=== PATIENT | female | born 1970 | race Caucasian/White ===

== ENCOUNTER 2018-12-03 20:16 | Observation (INO) | payer OTHER ==
[~2018-12-03] VITALS: Ht 160 cm; Wt 57.2 kg
--- OUTSIDE RECORDS SUMMARY | 2018-12-03 20:19 | XMS REPORT | Clinical Summary ---
Author Author [facility] Organization [facility] Address Unknown Phone Unavailable Care Team Providers Care Lab Systems Analyst Name Role Phone PCP Unavailable Allergies Not on File Medications Not on file Active Problems Not on file Social History Date Tobacco Use Types Packs/Day Years Used Never Assessed Sex Assigned at Date Recorded Not on file Industry Job Start Date Occupation Not on file Not on file Not on file Travel End Travel History Travel Start No recent travel history available. Last Filed Vital Signs Not on file Plan of Treatment Not on file Results Not on fileafter 12/02/2017
[2018-12-03 20:46] LABS: BASOPHILS # (AUTO) 0.1 (0.0-0.1); BASOPHILS % 0.6 % (0.0-1.0); EOSINOPHILS # (AUTO) 0.3 (0.0-0.4); EOSINOPHILS % 3.6 % (0.0-6.0); HEMATOCRIT 42.6 % (34.2-44.1); LYMPHOCYTES # (AUTO) 3.3 (1.0-3.2); MEAN CORPUSCULAR HEMOGLOBIN 31.6 pg (28-32); MEAN CORPUSCULAR HGB CONC 35.2 g/dL (31-35); MEAN CORPUSCULAR VOLUME 89.7 fL (81-99); MONOCYTES # (AUTO) 0.6 (0.2-0.8); MONOCYTES % 7.1 % (4.4-11.3); NEUTROPHILS # (AUTO) 4.6 (2.1-6.9); NEUTROPHILS % 51.5 % (38.7-80.0); PLATELET COUNT 313 x10e3/uL (140-360); RED BLOOD COUNT 4.75 x10e6/uL (3.6-5.1); RED CELL DISTRIBUTION WIDTH 11.9 % (11.7-14.4)
[2018-12-03 20:51] LABS: INR 0.82; PROTHROMBIN TIME 11.8 seconds (11.9-14.5)
[2018-12-03 20:52] LABS: PARTIAL THROMBOPLASTIN TIME 26.1 seconds (23.8-35.5)
[2018-12-03 21:02] LABS: ALANINE AMINOTRANSFERASE 8 IU/L (0-55); ALBUMIN 4.1 g/dL (3.5-5.0); ALBUMIN/GLOBULIN RATIO 1.4 (0.8-2.0); ALKALINE PHOSPHATASE 77 IU/L (40-150); ANION GAP 15.1 mmol/L (8-16); BLOOD UREA NITROGEN 12 mg/dL (7-26); BUN/CREATININE RATIO 14 (6-25); CALCIUM 9.7 mg/dL (8.4-10.2); CARBON DIOXIDE 26 mmol/L (22-29); CHLORIDE 100 mmol/L (98-107); CREATINE KINASE 61 IU/L (29-168); CREATININE, SERUM 0.83 mg/dL (0.57-1.11); EST GLOMERULAR FILTRATION RATE > 60 ML/MIN (60-); GLUCOSE 94 mg/dL (74-118); POTASSIUM 4.1 mmol/L (3.5-5.1); SODIUM 137 mmol/L (136-145)
--- NOTE | 2018-12-03 21:16 | Diagnostic Imaging Report ---
EXAMINATION: CHEST SINGLE (PORTABLE) COMPARISON: None INDICATION: Chest tightness, trouble breathing, left shoulder pain ^ERMD ORDER ^[id number] ^2051 ^Y DISCUSSION: Frontal view of the chest obtained at 2058 hours. HEART AND MEDIASTINUM: The cardiomediastinal silhouette is unremarkable. LINES: None. LUNGS: The lungs are well inflated and clear. No pneumonia or pulmonary edema. PLEURA: No pleural effusion or pneumothorax. BONES AND SOFT TISSUES: No focal osseous lesion. The soft tissues are normal. IMPRESSION: No acute cardiopulmonary disease. Signed by: Dr. Ric Martin MD on 12/03/2018 9:13 PM
--- NOTE | 2018-12-03 22:40 | NUR ---
PT STATES TO CONTINUE TO HAVE PAIN AT THIS TIME, BUT STATES "I DON'T WANT TO TAKE PAIN MEDICATION, I DO NOT LIKE TO TAKE PAIN MEDS"; PT UPDATED ON PLAN OF CARE AND INTENT OF ADMISSION, VERBALIZED UNDERSTANDING.
[2018-12-03 22:50] LABS: BILIRUBIN,URINE NEGATIVE (NEGATIVE); CLARITY,URINE CLEAR (CLEAR); COLOR,URINE YELLOW (YELLOW); KETONES,URINE NEGATIVE (NEGATIVE); LEUKOCYTE ESTERASE ,URINE NEGATIVE (NEGATIVE); NITRITE,URINE NEGATIVE (NEGATIVE); PROTEIN,URINE DIPSTICK NEGATIVE (NEGATIVE); URINE UROBILINOGEN 0.2 mg/dL (0.2 - 1)
--- NOTE | 2018-12-03 23:00 | NUR ---
REPORT GIVENT TO GLENNY BREWSTER
[2018-12-03 23:12] LABS: BACTERIA,URINE RARE /HPF; EPITHELIAL CELLS,URINE RARE /LPF; RBC,URINE 0-5 /HPF (0-5); WBC,URINE (MAN) 0-5 /HPF (0-5)
[2018-12-03] MEDS ORDERED: ONDANSETRON HCL INJ 2MG/ML 2ML 2 MG/ML VIAL IV PRN (23:15)
--- OUTSIDE RECORDS SUMMARY | 2018-12-03 23:20 | XMS REPORT | Clinical Summary ---
Author Author [facility] Organization [facility] Address Unknown Phone Unavailable Care Team Providers Care Printed Circuit Boards Laminator Name Role Phone PCP Unavailable Allergies Not [...]
--- OUTSIDE RECORDS SUMMARY | 2018-12-03 23:20 | XMS REPORT ---
Author Author [facility] Address Unknown Phone Unavailable Care Team Providers Care Construction Analyst Name Role Phone Randee NELSON Unavailable Unavailable Problems This patient has no known problems. Allergies, Adverse Reactions, Alerts This patient has no known allergies or adverse reactions. Medications This patient has no known medications. Results Test Description Test Time Test Comments Text Results Atomic Results Result Comments CHEST SINGLE (PORTABLE) 2018-12-03 21:12:00 [place] [id number] Patient Name: NATASHA GARDNER MR #: [id number] : 1970 Age/Sex: 47/F Req #: [id number] Adm Physician: Ordered by: GEORGETTE GANT NP Report #: [id number] Location: ER Room/Bed: Procedure: [id number] DX/CHEST SINGLE (PORTABLE) Exam Date: 12/03/18 Exam Time: 2051 REPORT STATUS: Signed EXAMINATION: CHEST SINGLE (PORTABLE) COMPAR FLAKO: None INDICATION: Chest tightness, trouble breathing, left shoulder pain ERMD ORDER [id number] DISCUSSION: Frontal view of the chest obtained at 2058 hours. HEART AND MEDIASTINUM: The cardiomediastinal silhouette is unremarkable. LINES: None. LUNGS: The lungs are well inflated and clear. No pneumonia or pulmonary edema. PLEURA: No pleural effusion or pneumothorax. BONES AND SOFT TISSUES: No focal osseous lesion. The soft tissues are normal. IMPRESSION: No acute cardiopulmonary disease. Signed by: Dr. Tierney Martin MD on 12/03/2018 9:13 PM Dictated By: TIERNEY MARTIN MD 12 Transcribed By: MITCH on 12/03/182112 COPY TO: GEORGETTE GANT NP
[2018-12-04] MEDS: FAMOTIDINE 20 MG TAB PO SCH ×2 (02:33→10:18)
--- NOTE | 2018-12-04 03:45 | NUR ---
RECEIVED PATIENT VIA STRETCHER. ALERT AND ORIENTED. ASSISTED TO BED. PATIENT PLACED ON A TELE ORDERED. VITAL SIGNS WITHIN NORMAL. NO COMPLAINT OF CHEST PAIN AT THIS TIME. PATIENT REFUSED HOSPITAL GOWN. ASSESSMENT DONE. PATIENT CLAIMED SHE FALL SEVERAL TIMES AT HOME. BED ALARM ON. CALL LIGHT WITHIN REACHED.
[2018-12-04 04:08] VITALS: BP 131/61
[2018-12-04 04:30] VITALS: BP 131/61
[2018-12-04 07:00] LABS: CHOL/HDL RATIO 2.7 (3.0-3.6)
[2018-12-04 07:08] LABS: CREATINE KINASE MB 0.8 ng/mL (0-5.0)
[2018-12-04 07:41] VITALS: BP 113/77
[2018-12-04 09:00] VITALS: BP 113/77
[2018-12-04] MEDS ORDERED: ASPIRIN 81 MG ENTERIC COATED PO SCH (09:00)
[2018-12-04] MEDS ORDERED: FAMOTIDINE20 MG PO (09:09)
[2018-12-04] MEDS ORDERED: ASPIRIN EC81 MG PO (09:09)
[2018-12-04 12:02] VITALS: BP 119/61
--- NOTE | 2018-12-04 12:51 | NUR ---
patient discharged home verbalized understanding of d/c instructions.
--- NOTE | 2018-12-05 21:27 | Discharge Summary ---
ADMISSION DIAGNOSES: Chest pain, tobacco use. DISCHARGE DIAGNOSES: Chest pain, tobacco use, rule out myocardial infarction. HISTORY: The patient has a history of left arm tumor and asthma. SURGICAL HISTORY: Jaw surgery, bilateral eye surgery, hysterectomy, bilateral oophorectomy, right ankle surgery, left arm surgery. FAMILY HISTORY: The patient's mother had diabetes and cancer. SOCIAL HISTORY: The patient admits to smoking 1 pack of cigarettes a day. HOSPITAL COURSE: A 47-year-old female complains of chest pressure that made her short of breath on the day of admission while sitting on her couch. It lasted several hours. She also had pain that radiated down her left arm, but she attributed that to her chronic left arm pain related to the tumor. She denies nausea, vomiting, diarrhea, and fever. Nothing improved or worsened the symptoms. On admission, troponins were negative x3. EKG showed normal sinus rhythm. Echo showed an EF of 45% to 50%. The patient was sent home with new prescriptions for aspirin and Pepcid. The patient understands discharge instructions and agrees to plan. She will follow up with primary care in 1 to 2 weeks. Dictated by Ivon Harris NP MD MEREDITH Brar/CRISELDA /[id number]
== END 2018-12-04 12:50 | disposition home or self-care (01) ==
LOC: ER 20:16 → ERHOLD 23:17 → IMCU 12-04 03:22
PROVIDERS: ADMIT Internal Medicine; ATTEND Internal Medicine
DX: R07.9 Chest pain, unspecified (principal); M25.511 Pain in right shoulder; Z88.2 Allergy status to sulfonamides; Z82.49 Family history of ischemic heart disease and other diseases of the circulatory system; Z72.0 Tobacco use; Z86.711 Personal history of pulmonary embolism; J45.909 Unspecified asthma, uncomplicated
CPT/HCPCS: 36415; 71045; 80053; 80061; 81001; 82550; 82553; 84484; 85025; 85379; 85610; 85730; 93005; 93306; 99284; G0378

== ENCOUNTER 2020-02-15 02:34 | Emergency (ER) | payer OTHER ==
[~2020-02-15] VITALS: Ht 160 cm; Wt 57.2 kg
[~2020-02-15 02:34] MED LIST: ASPIRIN EC81 MG PO; FAMOTIDINE20 MG PO
--- NOTE | 2020-02-15 03:04 | Emergency Department Note ---
History of Present Illnes History of Present Illness Chief Complaint: Extremity Trauma/Pain History of Present Illness This is a 49 year old female arrived to the ED right hand pain after a crush injury in December. Patient denies any numbness or weakness but states pain is unrelenting. . Historian: Patient Arrival Mode: Car Onset (how long ago): week(s) Severity: mild Duration (how long): month(s) Timing of current episode: intermittent Progression: unchanged Past Medical/Family History Physician Review I have reviewed the patient's past medical and family history. Any updates have been documented here. Past Medical History Recent Fever: No Clinical Suspicion of Infectio: No New/Unexplained Change in Ment: No Past Medical History: DVT/PE Past Surgical History: Hysterectomy, Tubal Ligation Other Surgery: eye surgery right ankle plate removed right ankle plate ovarian cyst removal jaw sx varicose vein cyst removal from rt knee nerve relocated to lt elbow Other Last Tetanus: UTD Review of Systems Review of Systems Constitutional: Reports no symptoms EENTM: Reports no symptoms Cardiovascular: Reports no symptoms Respiratory: Reports no symptoms Gastrointestinal: Reports no symptoms Genitourinary: Reports no symptoms Musculoskeletal: Reports as per HPI Integumentary: Reports no symptoms Neurological: Reports no symptoms Psychological: Reports no symptoms Endocrine: Reports no symptoms Hematological/Lymphatic: Reports no symptoms Physical Exam Related Data Allergies: Uncoded Allergies: SULFA (Allergy, Unknown, 12/03/18) Triage Vital Signs Vital Signs Date Time Temp Pulse Resp B/P (MAP) Pulse Ox O2 Delivery O2 Flow Rate FiO2 02/15/20 02:49 98.7 106 20 136/83 100 Room Air Vital signs reviewed: Yes Physical Exam CONSTITUTIONAL Constitutional: Present well-developed, Present well-nourished HENT HENT: Present normocephalic, Present atraumatic, Present oropharynx clear/moist, Present nose normal HENT L/R: Present left ext ear normal, Present right ext ear normal EYES Eyes: Reports PERRL, Reports conjunctivae normal NECK Neck: Present ROM normal PULMONARY Pulmonary: Present effort normal, Present breath sounds normal CARDIOVASCULAR Cardiovascular: Present regular rhythm, Present heart sounds normal, Present capillary refill normal, Present normal rate GASTROINTESTINAL Abdominal: Present soft, Present nontender, Present bowel sounds normal GENITOURINARY Genitourinary: Present exam deferred SKIN Skin: Present warm, Present dry MUSCULOSKELETAL Musculoskeletal: Present deformity, Present tenderness, Present swelling NEUROLOGICAL Neurological: Present alert, Present oriented x 3, Present no gross motor or sensory deficits PSYCHOLOGICAL Psychological: Present mood/affect normal, Present judgement normal Results Imaging Imaging results reviewed: Yes Assessment & Plan Medical Decision Making MDM 41-year-old female swelling. Follow-up with hand surgeon possible MRI neurovascularly intact. Patient placed in a Velcro splint and was neurovascular intact prior to and post splint placement. Assessment & Plan Final Impression: (1) Wrist sprain Depart Disposition: HOME, SELF-CARE Last Vital Signs Date Time Temp Pulse Resp B/P (MAP) Pulse Ox O2 Delivery O2 Flow Rate FiO2 02/15/20 02:49 98.7 106 20 136/83 100 Room Air Home Meds Active Scripts Famotidine (FAMOTIDINE) 20 Mg Tab, 20 MG PO DAILY, #30 TAB Prov:REYNA LUNA NP 12/04/18 Aspirin (ASPIRIN EC) 81 Mg Tablet.dr 81 MG PO QAM for 30 Days Prov:REYNA LUNA NP 12/04/18 JACKIE ACEVEDO DO Feb 15, 2020 03:04
--- OUTSIDE RECORDS SUMMARY | 2020-02-15 03:14 | XMS REPORT | Continuity of Care Document ---
Author Author [facility] Organization [facility] Address [address] [place] [address] Phone Unavailable Care Team Providers Care Psychology Intern Name Role Phone NONSTAFF PCP Unavailable Randee NELSON Attphyclarissa Unavailable Payers Payer Name Policy Type Policy Number Effective Date Expiration Date Clarissa Booth [facility] [id number] 2014 00:00:00 [facility] Problems Condition Name Condition Details Condition Category Status Onset Date Resolution Date Last Treatment Date Treating Clinician Comments Source Chest pain Chest pain Problem Active [facility] Dyspnea Dyspnea Problem Active [facility] Allergies, Adverse Reactions, Alerts Allergy Name Allergy Type Status Severity Reaction(s) Onset Date Inacti ve Date Treating Clinician Comments Source SULFA Allergy to Substance Active 2018-12-03 00:00:00 [facility] Social History Social Habit Start Date Stop Date Quantity Comments Source Sex Assigned At Priyank Hoang Medications Ordered Medication Name Filled Medication Name Start Date Stop Da te Current Medication? Ordering Clinician Indication Dosage Frequency Signature (SIG) Comments Components Source Aspirin (Aspirin Ec) 81 Mg Tablet. Aspirin (Aspirin Ec) 81 Mg Tablet. 2018-12-04 00:00:00 Yes Ivon Harris [employer] Operator Chief 81 Every M orning [facility] Famotidine 20 Mg Tab Famotidine 20 Mg Tab 2018-12-04 00:00:00 Yes Ivon Harris Np 20 Daily [facility] Procedures This patient has no known procedures. Encounters Start Date/Time End Date/Time Encounter Type Admission Type [facility] Care Department Encounter ID Source 2018-12-03 23:17:00 2018-12-04 12:50:00 Discharged Inpatient (obs) 1 CYNDIE NELSON [facility] [id number] [facility] Results Test Description Test Time Test Comments Results Result Comments Source Creatine Kinase MB 2018-12-04 07:21:00 Test Item Creatine Kinase MB (test code = 01414-4) 0.80 0-5.0 [facility]onin [id number] 07:21:00* Test Item Value Reference Range Interpretation Comments Troponin I (test code = GQM6431) 0.005 0-0.300 [facility]AllenTriglycerides Nmsjq7007-38-62 07:02:00* Test Item Value Reference Range Interpretation Comments Triglycerides Level (test code = 2571-8) 48 0-149 [facility]Cholesterol Dgqyc4822-61-23 07:02:00* Test Item Value Reference Range Interpretation Comments Cholesterol Level (test code = 2093-3) 163 0-199 Less than 200 mg/dL Low Tgnn533 - 239 mg/dL Borderline Qnpy025 m g/dl and greater High Risk [facility]AllenLDL Fxfyyylvmei4335-22-81 07:02:00* Test Item Value Reference Range Interpretation Comments LDL Cholesterol (test code = 2089-1) 93 60-130 [facility]HDL Uxhcniqxruo3941-83-91 07:02:00* Test Item Value Reference Range Interpretation Comments HDL Cholesterol (test code = 2085-9) 60 40-60 [facility]olesterol/HDL Tsqpg5813-74-78 07:02:00 * Test Item Value Reference Range Interpretation Comments Cholesterol/HDL Ratio (test code = 9830-1) 2.7 3.0-3.6 L [facility]AllenCreatine Pokdaf8030-40-76 07:02:00* Test Item Value Reference Range Interpretation Comments Creatine Kinase (test code = 2157-6) 40 29-168 [facility]AllenUrine [id number] 23:12:00* Test Item Value Reference Range Interpretation Comments Urine WBC (test code = 5821-4) 0-5 0-5 [facility]Allen[facility] [id number] 23:12:00* Test Item Value Reference Range Interpretation Comments Urine RBC (test code = 25310-1) 0-5 0-5 [facility]AllenU[facility] Puutoumc5601-51-18 23:12:00* Test Item Value Reference Range Interpretation Comments Urine Bacteria (test code = 65494-1) RARE NONE [facility] Epithelial Nvffz5327-87-95 23:12:00 * Test Item Value Reference Range Interpretation Comments Urine Epithelial Cells (test code = 28469-0) RARE NONE [facility]AllenUrine Tpifa8256-10-57 22:52:00* Test Item Value Reference Range Interpretation Comments Urine Color (test code = 5778-6) YELLOW YELLOW [facility]AllenUrine Qmrrlsb1542-58-58 22:52:00* Test Item Value Reference Range Interpretation Comments Urine Clarity (test code = 31461-6) CLEAR CLEAR [facility]AllenUrine Specific Naqygqi2949-11-44 22:52:00 * Test Item Value Reference Range Interpretation Comments Urine Specific [place] (test code = 5811-5) <=1.005 1.010-1.02 5 [facility]AllenUrine [id number] 22:52:00* Test Item Value Reference Range Interpretation Comments Urine pH (test code = 82921-7) 6 5-7 [facility] Leukocyte Czrfzqkx1141-88-14 22:52:00* Test Item Value Reference Range Interpretation Comments Urine Leukocyte Esterase (test code = 54893-6) NEGATIVE NEGATIV E [facility]AllenUrine Ejwysei9384-02-79 22:52:00* Test Item Value Reference Range Interpretation Comments Urine Nitrite (test code = 02887-3) NEGATIVE NEGATIVE [facility]AllenUrine Uzcauqd2327-74-60 22:52:00* Test Item Value Reference Range Interpretation Comments Urine Protein (test code = 90374-1) NEGATIVE NEGATIVE [facility]AllenUrine Glucose (UA)2018-12-03 22:52:00* Test Item Value Reference Range Interpretation Comments Urine Glucose (UA) (test code = 74680-7) NEGATIVE NEGATIVE [facility]AllenUrine Zhdcdwv9166-92-90 22:52:00* Test Item Value Reference Range Interpretation Comments Urine Ketones (test code = 52050-3) NEGATIVE NEGATIVE [facility]AllenUrine Adtfciqexzhs0261-02-26 22:52:00* Test Item Value Reference Range Interpretation Comments Urine Urobilinogen (test code = 22557-1) 0.2 0.2-1 [facility]AllenUrine Jxupgtzfg1376-75-43 22:52:00* Test Item Value Reference Range Interpretation Comments Urine Bilirubin (test code = 1977-8) NEGATIVE NEGATIVE [facility]AllenUrine Gcols0472-07-12 22:52:00* Test Item Value Reference Range Interpretation Comments Urine Blood (test code = 64480-6) TRACE NEGATIVE [facility]AllenCHEST SINGLE (PORTABLE)2018-12-03 21:12:00 [facility] [address] [place] [address] Patient Name: NATASHA GARDNER MR #: [id number] : 1970 Age/Sex: 47/F Req #: [id number] Adm Physician: Ordered by: GEORGETTE GANT WEIGHER PRODUCTION Report #: [id number] Location: ER Room/Bed: Procedure: [id number] DX/ CHEST SINGLE (PORTABLE) Exam Date: 12/03/18 Exam Kelvin e: 2051 REPORT STATUS: Signed EX AMINATION: CHEST SINGLE (PORTABLE) COMPARISON: None INDICATION: C hest tightness, trouble breathing, left shoulder pain ERMD ORDER [id number] Y DISCUSSION: Frontal view of the chest obtained at 2058 ho urs. HEART AND MEDIASTINUM: The cardiomediastinal silhouette is unremarkab le. LINES: None. LUNGS: The lungs are well inflated and clear. No pneumonia or pulmonary edema. PLEURA: No pleural effusion or pneumothorax. BONES AND SOFT TISSUES: No focal osseous lesion. The soft tissues are nor mal. IMPRESSION: No acute cardiopulmonary disease. Signed by: Dr. Nilay Martin MD on 12/03/2018 9:13 PM Dictated By: TIERNEY MARTIN MD 12 Transcribed By: MITCH on 12/03/182112 COPY TO: GEORGETTE GANT NP D-Dimer Quantitative (PE/DVT)2018-12-03 21:07:00* Test Item Value Reference Range Interpretation Comments D-Dimer Quantitative (PE/DVT) (test code = 69015-0) < 100 0- 400 As with all in vitro diagnostic tests, the test results should be interpreted by the physician in conjunction with clinical findings and other test results.Test results are reported in NEW D-dimer units(ug/mLFEU).[facility] Centerodium Selgq0035-11-47 21:07:00* Test Item Value Reference Range Interpretation Comments Sodium Level (test code = 2951-2) 137 136-145 [facility]AllenPotassium Zgayx9181-95-56 21:07:00* Test Item Value Reference Range Interpretation Comments Potassium Level (test code = 2823-3) 4.1 3.5-5.1 [facility]AllenChloride Krqhf4338-62-99 21:07:00* Test Item Value Reference Range Interpretation Comments Chloride Level (test code = 2075-0) 100 98-107 [facility]AllenCarbon Dioxide Wbcwp6699-12-13 21:07:00* Test Item Value Reference Range Interpretation Comments Carbon Dioxide Level (test code = 2028-9) 26 22-29 [facility] McAllenAnion Ngp1555-66-83 21:07:00* Test Item Value Reference Range Interpretation Comments Anion Gap (test code = 86014-4) 15.1 8-16 [facility]AllenBlood Urea Ytzkimwx1501-80-57 21:07:00* Test Item Value Reference Range Interpretation Comments Blood Urea Nitrogen (test code = 3094-0) 12 7-26 [facility]AllenCreatinine2019-08-26 21:07:00* Test Item Value Reference Range Interpretation Comments Creatinine (test code = 2160-0) 0.83 0.57-1.11 [facility]AllenBUN/Creatinine Fidyj1324-82-19 21:07:00* Test Item Value Reference Range Interpretation Comments BUN/Creatinine Ratio (test code = 3097-3) 14 6-25 [facility] McAllenEstimat Glomerular Filtration Rate 2018-12-03 21:07:00* Test Item Value Reference Range Interpretation Comments Estimat Glomerular Filtration Rate (test code = 917383228) > 60 >60 Ranges were taken from the National Kidney Disease Education Program and the [facility] Kidney Foundation literature.Reference ranges:60 or greater: Rgvoxm89-21 ( for 3 consecutive months): Chronic kidney disease 15 or less: Kidney failureSouth [facility] Health System McAllenGlucose Pydgq8149-66-83 21:07:00* Test Item Value Reference Range Interpretation Comments Glucose Level (test code = ZAP3828) 94 74-118 [facility]AllenCalcium Clpax8065-54-08 21:07:00* Test Item Value Reference Range Interpretation Comments Calcium Level (test code = 90059-6) 9.7 8.4-10.2 [facility] McAllenTotal Bptcksahq4581-60-78 21:07:00* Test Item Value Reference Range Interpretation Comments Total Bilirubin (test code = 1975-2) 0.3 0.2-1.2 [facility] McAllenAspartate Amino Transf (AST/SGOT) 2018-12-03 21:07:00* Test Item Value Reference Range Interpretation Comments Aspartate Amino Transf (AST/SGOT) (test code = Aspartate Amino Transf (AST/SGOT)) 16 5-34 [facility] McAllenAlanine Aminotransferase (ALT/SGPT) 2018-12-03 21:07:00* Test Item Value Reference Range Interpretation Comments Alanine Aminotransferase (ALT/SGPT) (test code = 1742-6) 8 0-55 [facility] McAllenTotal Ivkrbuw1058-05-53 21:07:00* Test Item Value Reference Range Interpretation Comments Total Protein (test code = 2885-2) 7.1 6.5-8.1 [facility] McAllenAlbumin2019-08-26 21:07:00* Test Item Value Reference Range Interpretation Comments Albumin (test code = 1751-7) 4.1 3.5-5.0 [facility]AllenGlobulin2019-08-26 21:07:00* Test Item Value Reference Range Interpretation Comments Globulin (test code = 05335-7) 3.0 2.3-3.5 [facility]AllenAlbumin/Globulin Trbcd6775-27-16 21:07:00 * Test Item Value Reference Range Interpretation Comments Albumin/Globulin Ratio (test code = 1759-0) 1.4 0.8-2.0 [facility]AllenAlkaline Thcbhzprmkb2413-64-57 21:07:00* Test Item Value Reference Range Interpretation Comments Alkaline Phosphatase (test code = 6768-6) 77 40-150 [facility] McAllenWhite Blood Blkwl3789-72-22 20:54:00* Test Item Value Reference Range Interpretation Comments White Blood Count (test code = 6690-2) 8.90 4.8-10.8 [facility] McAllenRed Blood Idbja4242-76-33 20:54:00* Test Item Value Reference Range Interpretation Comments Red Blood Count (test code = 789-8) 4.75 3.6-5.1 [facility]AllenHemoglobin2019-08-26 20:54:00* Test Item Value Reference Range Interpretation Comments Hemoglobin (test code = 62712-9) 15.0 12.0-16.0 [facility]AllenHematocrit2019-08-26 20:54:00* Test Item Value Reference Range Interpretation Comments Hematocrit (test code = 4544-3) 42.6 34.2-44.1 [facility] McAllenMean Corpuscular Svevft1472-65-44 20:54:00* Test Item Value Reference Range Interpretation Comments Mean Corpuscular Volume (test code = 787-2) 89.7 81-99 [facility] McAllenMean Corpuscular Tzwtjtmahw7404-65-35 20:54:00* Test Item Value Reference Range Interpretation Comments Mean Corpuscular Hemoglobin (test code = 785-6) 31.6 28-32 [facility] McAllenMean Corpuscular Hemoglobin Concent 2018-12-03 20:54:00* Test Item Value Reference Range Interpretation Comments Mean Corpuscular Hemoglobin Concent (test code = 786-4) 35.2 31-35 H [facility] McAllenRed Cell Distribution Ylknq8479-41-52 20:54:00* Test Item Value Reference Range Interpretation Comments Red Cell Distribution Width (test code = 39624-7) 11.9 11.7 -14.4 [facility] McAllenPlatelet Adipt1105-80-56 20:54:00* Test Item Value Reference Range Interpretation Comments Platelet Count (test code = 777-3) 313 140-360 [facility] McAllenNeutrophils (%) (Auto)2018-12-03 20:54:00 * Test Item Value Reference Range Interpretation Comments Neutrophils (%) (Auto) (test code = 09712-7) 51.5 38.7-80.0 [facility]AllenLymphocytes (%) (Auto)2018-12-03 20:54:00 * Test Item Value Reference Range Interpretation Comments Lymphocytes (%) (Auto) (test code = 736-9) 37.0 18.0-39.1 [facility] McAllenMonocytes (%) (Auto)2018-12-03 20:54:00* Test Item Value Reference Range Interpretation Comments Monocytes (%) (Auto) (test code = 5905-5) 7.1 4.4-11.3 [facility]AllenEosinophils (%) (Auto)2018-12-03 20:54:00 * Test Item Value Reference Range Interpretation Comments Eosinophils (%) (Auto) (test code = 713-8) 3.6 0.0-6.0 [facility] McAllenBasophils (%) (Auto)2018-12-03 20:54:00* Test Item Value Reference Range Interpretation Comments Basophils (%) (Auto) (test code = 706-2) 0.6 0.0-1.0 [facility] McAllenIM GRANULOCYTES %2018-12-03 20:54:00* Test Item Value Reference Range Interpretation Comments IM GRANULOCYTES % (test code = IM GRANULOCYTES %) 0.2 0.0- 1.0 [facility]AllenNeutrophils # (Auto)2018-12-03 20:54:00* Test Item Value Reference Range Interpretation Comments Neutrophils # (Auto) (test code = 751-8) 4.6 2.1-6.9 [facility]AllenLymphocytes # (Auto)2018-12-03 20:54:00* Test Item Value Reference Range Interpretation Comments Lymphocytes # (Auto) (test code = 47292-8) 3.3 1.0-3.2 H [facility]AllenMonocytes # (Auto)2018-12-03 20:54:00* Test Item Value Reference Range Interpretation Comments Monocytes # (Auto) (test code = 742-7) 0.6 0.2-0.8 [facility]AllenEosinophils # (Auto)2018-12-03 20:54:00* Test Item Value Reference Range Interpretation Comments Eosinophils # (Auto) (test code = 711-2) 0.3 0.0-0.4 [facility]AllenBasophils # (Auto)2018-12-03 20:54:00* Test Item Value Reference Range Interpretation Comments Basophils # (Auto) (test code = 704-7) 0.1 0.0-0.1 [facility] McAllenAbsolute Immature Granulocyte (auto 2018-12-03 20:54:00* Test Item Value Reference Range Interpretation Comments Absolute Immature Granulocyte (auto (daljit t code = Absolute Immature Granulocyte (auto) 0.02 0-0.1 [facility]AllenProthrombin Glzs0269-18-92 20:54:00* Test Item Value Reference Range Interpretation Comments Prothrombin Time (test code = 5902-2) 11.8 11.9-14.5 L [facility] McAllenProthromb Time International Ratio 2018-12-03 20:54:00* Test Item Value Reference Range Interpretation Comments Prothromb Time International Ratio (test code = 6301-6) 0.82 Oral Anticoagulant Therapy INR Values:1. Low Intensity Therapy 1.5 - 2.02 . Moderate Intensity Therapy 2.0 - 3.03. High Intensity Therapy(1) 2.5 - 3. 54. High Intensity Therapy(2) 3.0 - 4.05. Panic Value INR > 5.0 [facility] McAllenActivated Partial Thromboplast Time 2018-12-03 20:54:00* Test Item Value Reference Range Interpretation Comments Activated Partial Thromboplast Time (test code = 83343-2) 26.1 23.8-35.5 [facility]
--- OUTSIDE RECORDS SUMMARY | 2020-02-15 03:14 | XMS REPORT | Clinical Summary ---
Author Author [facility] Organization [facility] Address Unknown Phone Unavailable Care Team Providers Care Glass Maker Name Role Phone PCP Unavailable Allergies Not on File Medications Not on file Active Problems Not on file Social History Date Tobacco Use Types Packs/Day Years Used Never Assessed Sex Assigned at Date Recorded Not on file Last Filed Vital Signs Not on file Plan of Treatment Not on file Results Not on fileafter 02/14/2019
--- NOTE | 2020-02-15 03:54 | Diagnostic Imaging Report ---
HAND 3+ VIEWS RIGHT - 3 views HISTORY: Pain COMPARISON: None available. FINDINGS: Bones: No acute displaced fracture. Osseous alignment is within normal limits. Joints: The joint spaces are well-maintained. Soft tissues: The soft tissues appear unremarkable. IMPRESSION: No acute radiographic abnormality. Signed by: Dr. Delvis Calzada MD on 02/15/2020 3:51 AM
== END 2020-02-15 04:11 | disposition home or self-care (01) ==
LOC: ER 03:12
DX: M25.531 Pain in right wrist (principal); S63.501A Unspecified sprain of right wrist, initial encounter; W23.1XXA Caught, crushed, jammed, or pinched between stationary objects, initial encounter; Y99.0 Civilian activity done for income or pay; Z86.718 Personal history of other venous thrombosis and embolism
CPT/HCPCS: 99282

== ENCOUNTER 2020-09-01 15:09 | Emergency (ER) | payer SELFPAY ==
[~2020-09-01] VITALS: Ht 160 cm; Wt 52.2 kg
[2020-09-01] MEDS ORDERED: DICLOFENAC SOD100 GM (15:22)
== END 2020-09-01 15:30 | disposition home or self-care (01) ==
LOC: ER 15:29
DX: M79.641 Pain in right hand (principal); M24.541 Contracture, right hand; Z86.718 Personal history of other venous thrombosis and embolism
CPT/HCPCS: 99282

== ENCOUNTER 2020-11-02 15:59 | Emergency (ER) | payer BC, OTHER ==
[~2020-11-02] VITALS: Ht 160 cm; Wt 52.2 kg
[~2020-11-02 15:59] MED LIST changes: +DICLOFENAC SOD100 GM
== END 2020-11-02 19:28 | disposition home or self-care (01) ==
LOC: ER 16:40
DX: S09.8XXA Other specified injuries of head, initial encounter (principal); W22.8XXA Striking against or struck by other objects, initial encounter; Z88.2 Allergy status to sulfonamides
CPT/HCPCS: 70450; 70486; 99282